=== PATIENT | female | born 1980 | race Caucasian/White ===

== ENCOUNTER → 2017-03-24 | Outpatient (CLI) | payer BC ==
--- NOTE | 2017-03-24 14:51 | MM ---
Reason for exam: screening (asymptomatic). Baseline mammogram. History: Patient had first child at age 31. Family history of breast cancer in paternal grandmother at age 80. Took hormonal contraceptives for 1 year beginning at age 17. Physical Findings: Nurse did not find any significant physical abnormalities on exam. MG Screening Mammo w CAD Bilateral CC and MLO view(s) were taken. The breast tissue is heterogeneously dense. This may lower the sensitivity of mammography. Finding: There are typically benign round calcifications in the upper quadrant of the left breast. There is no discrete abnormality. These results were verbally communicated with the patient and result sheet given to the patient on 03/24/17. ASSESSMENT: Negative, BI-RAD 1 RECOMMENDATION: Routine screening mammogram of both breasts at age 39. Back at age 39.
== END | disposition home or self-care (01) ==
LOC: RADMAMWWP 13:47
PROVIDERS: ATTEND Obstetrics & Gynecology
DX: Z12.31 Encounter for screening mammogram for malignant neoplasm of breast (principal); Z80.3 Family history of malignant neoplasm of breast